=== PATIENT | female | born 2000 ===

== ENCOUNTER 2024-07-01 22:24 | Emergency (ER) | payer OTHER, SELFPAY ==
[2024-07-01 22:27] VITALS: BP 151/100; PULSE 101; RESP 17; TEMP 37; O2SAT 96
--- NOTE | 2024-07-01 23:34 | PC.NURSE ---
Patient to triage desk stating she would like to leave, will go to urgent care in the morning.
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
== END 2024-07-01 23:33 | disposition left against medical advice (07) ==
DX: M54.50 Low back pain, unspecified (principal)
CPT/HCPCS: 99199